=== PATIENT | female | born 1980 | race Caucasian/White ===

== ENCOUNTER 2019-07-30 | Emergency (ER) | payer SELFPAY ==
[2019-07-30 00:33] LABS: Absolute Lymphocytes (CBC) 3.9 K/uL (0.7-4.9); Basophils % 1.1 % (0-1.3); Hematocrit 43.9 % (36.0-45.0); Lymphocytes % 40.8 % (15.3-44.8); RBC Red Blood Cell Count 4.74 M/uL (3.86-4.86)
[2019-07-30] MEDS ORDERED: MORPHINE 4 MG/ML SYR ONE (00:46)
[2019-07-30] MEDS ORDERED: ONDANSETRON 4 MG/2 ML VIAL ONE (00:46)
[2019-07-30 00:51] LABS: ALT/SGPT 35 U/L (12-78); AST/SGOT 18 U/L (15-37); Alkaline Phosphatase 85 U/L (45-117); BUN Blood Urea Nitrogen 15 mg/dL (7-18); Bicarbonate 28 mmol/L (21-32); Bilirubin Direct < 0.1 mg/dL (0-0.2); Bilirubin Total 0.2 mg/dL (0.2-1.0); Glucose Level 109 mg/dL (74-106); Lipase 251 U/L (73-393); Potassium 3.7 mmol/L (3.5-5.1); Protein, Total 7.8 g/dL (6.4-8.2); Sodium Level 141 mmol/L (136-145)
--- NOTE | 2019-07-30 01:54 | ER ---
Nurse's Notes [facility] Name: Gabriella Leigh Age: 38 yrs Sex: Female : 1980 Arrival Date: 07/30/2019 Time: 00:03 Bed 14 Private MD: Diagnosis: Epigastric pain Presentation: 07/29 00:12 Chief complaint: Patient states: i have RUQ pain and vomiting on and off for about a mg2 month now, i fell on the staircase a month ago and i rolled over. i think this is related to the fall. Coronavirus screen: The patient has NOT traveled to a country currently being monitored by the [facility] within the last 14 days. Proceed with normal triage procedures. The patient has NOT had contact with any known and/or suspected case of coronavirus. Proceed with normal triage procedures. Ebola Screen: No symptoms or risks identified at this time. Initial Sepsis Screen: Does the patient meet any 2 criteria? No. Patient's initial sepsis screen is negative. Does the patient have a suspected source of infection? No. Patient's initial sepsis screen is negative. Risk Assessment: Do you want to hurt yourself or someone else? Patient reports no desire to harm self or others. 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 - Social history:: Smoking status: Patient reports the use of cigarette tobacco products, smokes one-half pack cigarettes per day, Patient uses alcohol, occasionally. street drugs, marijuana. Screenin:35 Abuse screen: Denies threats or abuse. Denies injuries from another. Nutritional mg2 screening: No deficits noted. Tuberculosis screening: No symptoms or risk factors identified. Fall Risk IV access (20 points). Assessment: 00:23 General: Appears in no apparent distress. comfortable, Behavior is calm, cooperative. mg2 Pain: Complains of pain in abdomen Pain currently is 7 out of 10 on a pain scale. Quality of pain is described as aching, Pain began gradually, a month ago. Neuro: Level of Consciousness is awake, alert, obeys commands, Oriented to person, place, time, situation. Cardiovascular: Capillary refill < 3 seconds Patient's skin is warm and dry. Respiratory: Airway is patent Respiratory effort is even, unlabored, Respiratory pattern is regular, symmetrical. GI: Abdomen is non-distended, Bowel sounds present X 4 quads. Abd is soft Reports upper abdominal pain, vomiting. : No signs and/or symptoms were reported regarding the genitourinary system. EENT: No signs and/or symptoms were reported regarding the EENT system. Derm: Skin is intact, is healthy with good turgor, Skin is pink, warm \T\ dry. normal. Musculoskeletal: Circulation, motion, and sensation intact. Capillary refill < 3 seconds. Vital Signs: 00:12 BP 121 / 81; Pulse 84; Resp 18; Temp 98.5; Pulse Ox 97% on R/A; Weight 90.72 kg; Height mg2 5 ft. 7 in. (170.18 cm); Pain 7/10; 01:26 BP 121 / 81; Pulse 71; Resp 18; Pulse Ox 95% on R/A; mg2 02:03 BP 120 / 78; Pulse 70; Resp 18; Temp 98; Pulse Ox 100% on R/A; mg2 00:12 Body Mass Index 31.32 (90.72 kg, 170.18 cm) mg2 ED Course: 00:03 Patient arrived in ED. cf2 00:04 Miguel Dolan, ACE is Primary Nurse. mg2 00:05 Arnoldo Torres PA is PHCP. jmm 00:05 Sameer Boudreaux MD is Attending Physician. jmm 00:14 Triage completed. mg2 00:14 Arm band placed on. mg2 00:28 Inserted saline lock: 22 gauge in right antecubital area, using aseptic technique. jb5 Blood collected. 00:30 Basic Metabolic Panel Sent. jb5 00:30 CBC with Diff Sent. jb5 00:30 Creatinine for Radiology Sent. jb5 00:30 Hepatic Function Sent. jb5 00:30 Lipase Sent. jb5 00:36 Patient has correct armband on for positive identification. mg2 00:37 No provider procedures requiring assistance completed. mg2 01:12 CT Abd/Pelvis - IV Contrast Only In Process Unspecified. EDMS 01:53 Edison Brady MD is Referral Physician. jmm 02:02 IV discontinued, intact, bleeding controlled, No redness/swelling at site. Pressure mg2 dressing applied. Administered Medications: 01:14 Drug: morphine 4 mg Route: IVP; Site: left forearm; mg2 01:48 Follow up: Response: No adverse reaction; RASS: Alert and Calm (0) mg2 01:14 Drug: Zofran (Ondansetron) 4 mg Route: IVP; Site: left forearm; mg2 01:47 Follow up: Response: No adverse reaction mg2 Outcome: 01:53 Discharge ordered by MD. jmm 02:03 Discharged to home ambulatory, with family. mg2 02:03 Condition: stable 02:03 Discharge instructions given to patient, family, Instructed on discharge instructions, follow up and referral plans. medication usage, Demonstrated understanding of instructions, follow-up care, medications, Prescriptions given X 4. 02:03 Patient left the ED. mg2 Signatures: Dispatcher [employer] EDMS Arnoldo Torres PA PA jmm Broussard, Jennifer jb5 Miguel Dolan RN RN mg2 Alyssia Espinal cf2
--- NOTE | 2019-07-30 01:54 | EDPHYS ---
Physician Documentation [facility] Name: Gabriella Leigh Age: 38 yrs Sex: Female : 1980 Arrival Date: 07/30/2019 Time: 00:03 Bed 14 Private MD: ROSALEE Physician Sameer Boudreaux HPI: 07/29 00:06 This 38 yrs old Female presents to ER via Ambulatory with complaints of jmm Abdominal Pain. 00:06 The patient presents with abdominal pain in the right upper quadrant. Onset: The jmm symptoms/episode began/occurred gradually, 1 month(s) ago. The symptoms radiate to right back. Associated signs and symptoms: Pertinent positives: nausea and vomiting, Pertinent negatives: diarrhea, fever. The symptoms are described as achy, sharp. Modifying factors: The symptoms are alleviated by nothing, the symptoms are aggravated by. This is a 38 year old female with a history of cancer that presents to the ED with complaints of episodic RUQ pain beginning approx 1 month ago. Patient states pain has intensified over the past week worsening this evening with vomiting. . 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 - Social history:: Smoking status: Patient reports the use of cigarette tobacco products, smokes one-half pack cigarettes per day, Patient uses alcohol, occasionally. street drugs, marijuana. ROS: 00:06 Constitutional: Negative for fever, chills, and weight loss, Cardiovascular: Negative jmm for chest pain, palpitations, and edema, Respiratory: Negative for shortness of breath, cough, wheezing, and pleuritic chest pain. 00:06 Abdomen/GI: Positive for abdominal pain, nausea and vomiting. 00:06 Back: Positive for flank pain, on the right. 00:06 All other systems are negative. Exam: 00:06 Constitutional: This is a well developed, well nourished patient who is awake, alert, jmm and in no acute distress. Head/Face: atraumatic. Eyes: EOMI, no conjunctival erythema appreciated ENT: Moist Mucus Membranes Neck: Trachea midline, Supple Chest/axilla: Normal chest wall appearance and motion. Cardiovascular: Regular rate and rhythm. No edema appreciated Respiratory: Normal respirations, no respiratory distress appreciated 00:06 Back: Normal ROM Skin: General appearance color normal MS/ Extremity: Moves all extremities, no obvious deformities appreciated, no edema noted to the lower extremities Neuro: Awake and alert, normal gait Psych: Behavior is normal, Mood is normal, Patient is cooperative and pleasant 00:06 Abdomen/GI: Inspection: abdomen appears normal, Bowel sounds: normal, Palpation: nontender, moderate abdominal tenderness, in the right upper quadrant. 00:06 Back: CVA tenderness, that is mild, is noted on the right. Vital Signs: 00:12 BP 121 / 81; Pulse 84; Resp 18; Temp 98.5; Pulse Ox 97% on R/A; Weight 90.72 kg; Height mg2 5 ft. 7 in. (170.18 cm); Pain 7/10; 01:26 BP 121 / 81; Pulse 71; Resp 18; Pulse Ox 95% on R/A; mg2 02:03 BP 120 / 78; Pulse 70; Resp 18; Temp 98; Pulse Ox 100% on R/A; mg2 00:12 Body Mass Index 31.32 (90.72 kg, 170.18 cm) mg2 MDM: 00:08 Patient medically screened. keara 01:50 Data reviewed: vital signs, nurses notes. Counseling: I had a detailed discussion with jeff the patient and/or guardian regarding: the historical points, exam findings, and any diagnostic results supporting the discharge/admit diagnosis, lab results, radiology results, the need for outpatient follow up, to return to the emergency department if symptoms worsen or persist or if there are any questions or concerns that arise at home. ED course: Pain relieved in the ED. Patient is advised to follow up with GI for further evaluation. Patient understood and agrees with the plan of care. . 07/29 00:06 Order name: Basic Metabolic Panel; Complete Time: 00:53 [facility] 07/29 00:06 Order name: CBC with Diff; Complete Time: 00:40 [facility] 07/29 00:06 Order name: Creatinine for Radiology; Complete Time: 00:53 [facility] 07/29 00:06 Order name: Hepatic Function; Complete Time: 00:53 [facility] 07/29 00:06 Order name: Lipase; Complete Time: 00:53 [facility] 07/29 00:28 Order name: CT Abd/Pelvis - IV Contrast Only [facility] 07/29 00:06 Order name: IV Saline Lock; Complete Time: 00:30 [facility] 07/29 00:06 Order name: Labs collected and sent; Complete Time: 00:30 [facility] 07/29 00:06 Order name: Urine Dipstick-Ancillary (obtain specimen); Complete Time: 00:30 [facility] 07/29 00:06 Order name: Urine Test (obtain specimen); Complete Time: 00:29 [facility] Administered Medications: 01:14 Drug: morphine 4 mg Route: IVP; Site: left forearm; mg2 01:48 Follow up: Response: No adverse reaction; RASS: Alert and Calm (0) mg2 01:14 Drug: Zofran (Ondansetron) 4 mg Route: IVP; Site: left forearm; mg2 01:47 Follow up: Response: No adverse reaction mg2 Disposition: 12:05 Co-signature as Attending Physician, Sameer Boudreaux MD I agree with the assessment and [facility] plan of care. Disposition: 07/30/19 01:53 Discharged to Home. Impression: Epigastric pain. - Condition is Stable. - Discharge Instructions: Abdominal Pain, Adult. - Prescriptions for Bentyl 20 mg Oral Tablet - take 2 tablet by ORAL route every 6 hours As needed; 40 tablet. Carafate 1 gram Oral Tablet - take 1 tablet by ORAL route 4 times per day take on an empty stomach, beginning on waking and last dose at bedtime; 100 tablet. Pepcid 20 mg Oral Tablet - take 1 tablet by ORAL route every 12 hours for 10 days; 20 tablet. Zofran 4 mg Oral Tablet - take 1 tablet by ORAL route every 12 hours As needed; 20 tablet. - Medication Reconciliation Form, Thank You Letter, Antibiotic Education, Prescription Opioid Use form. - Follow up: Edison Brady MD; When: 2 - 3 days; Reason: Recheck today's complaints, Continuance of care, Re-evaluation by your physician. Signatures: Dispatcher [employer] Sameer Ayala MD MD cha Mickail, Joel, PA PA Miguel Fulton RN RN mg2 Corrections: (The following items were deleted from the chart) 02:03 01:53 07/30/2019 01:53 Discharged to Home. Impression: Epigastric pain. Condition is mg2 Stable. Forms are Medication Reconciliation Form, Thank You Letter, Antibiotic Education, Prescription Opioid Use. Follow up: Edison Brady; When: 2 - 3 days; Reason: Recheck today's complaints, Continuance of care, Re-evaluation by your physician. jeff
[2019-07-30 02:48] VITALS: BP 120/78; TEMP 98; O2SAT 100
--- NOTE | 2019-07-30 11:48 | RAD REPORT ---
EXAM DESCRIPTION: CT ABDOMEN AND PELVIS WITH CONTRAST CLINICAL HISTORY: Right sided abdominal pain, hysterectomy COMPARISON: None Available. TECHNIQUE: CT of the abdomen and pelvis performed following IV administration of iodinated contrast. FINDINGS: Lung Bases: The visualized lung bases are clear. Bones: Posterior misbah and screw fixation with laminectomies at L4/5. Abdomen: Liver: The liver has normal size and decreased density. No intrahepatic biliary dilatation. Gallbladder: Prior cholecystectomy. Spleen, Pancreas, and Adrenal Glands: The spleen, pancreas, and adrenal glands are unremarkable. Kidneys: No hydronephrosis or obstructing calculus. Vasculature: Aortoiliac atherosclerosis. IVC is unremarkable. The portal vein is patent. The proxim al visceral and renal arteries are patent. Stomach: The stomach and duodenum have normal course. Other: No free intraperitoneal air. No free fluid or lymphadenopathy. Pelvis: Bladder: Urinary bladder is unremarkable. Bowel: No dilated loops of large or small bowel. Diffuse scattered diverticula of the colon without pericolic inflammatory change. Appendix: Not identified. Pelvis: Prior hysterectomy. IMPRESSION: 1. No acute inflammatory or obstructive process identified. 2. Hepatic steatosis. 3. Diverticulosis without evidence of acute diverticulitis. This exam was performed according to our departmental dose-optimization program, which includes autom ated exposure control, adjustment of the mA and/or kV according to patient size and/or use of iterati ve reconstruction technique. Electronically signed by: Suman Jones 07/30/2019 1:26 AM CDT Due to temporary technical issues with the PACS/Fluency reporting system, reports are being signed by the in house radiologist as a courtesy to ensure prompt reporting. The interpreting radiologist is f ully responsible for the content of the report.
== END 2019-07-30 02:03 | disposition home or self-care (01) ==
LOC: ER
DX: R10.13 Epigastric pain (principal); R11.2 Nausea with vomiting, unspecified; Z88.2 Allergy status to sulfonamides; Z91.040 Latex allergy status; Z91.048 Other nonmedicinal substance allergy status
CPT/HCPCS: 36415; 74177; 80048; 80076; 83690; 85025; 96374; 96375; 99284; J2405; Q9967

== ENCOUNTER 2020-02-18 13:53 | Emergency (ER) | payer OTHER, SELFPAY ==
--- OUTSIDE RECORDS SUMMARY | 2020-02-18 13:55 | XMS REPORT | Continuity of Care Document ---
:1980 Author Organization [facility] t Address [address] [place] [address] Care Team Providers Name Role Phone Unavailable Unavailable Unavailable Problems This patient has no known problems. Allergies, Adverse Reactions, Alerts This patient has no known allergies or adverse reactions. Social History Smoking Status Start Date Stop Date Source Heavy Tobacco Smoker [facility] Medications Ordered Filled Start Stop Current Ordering Indication Dosage Frequency Signature Comments Components Source Medication Medication Date Date Medication? Clinician (SIG) Name Name naproxen naproxen No naproxen [facility] Vital Signs Vital Name Observation Time Observation Value Comments Source BP Diastolic 2019-05-27 00:00:00 82 mm[Hg] [facility] Height 2019-05-27 00:00:00 67 [in_i] [facility] BMI (Body Mass 2019-05-27 00:00:00 33.9 kg/m2 [facility] BP Systolic 2019-05-27 00:00:00 129 mm[Hg] [facility] Body Weight 2019-05-27 00:00:00 216.3 [lb_av] [facility] Procedures This patient has no known procedures. Encounters Start End Encounter Admission Attending Care Care Encounter Source Date/Time Date/Time Type Type Clinicians Facility Department ID 2019-05-27 2019-05-27 Hugo RAMOS [place] - [id number] [facility] 00:00:00 00:00:00 [facility] breanna Salmon MD: [address] [place] [address] Group [facility] - [address], [place] [address] , Ph. Results This patient has no known results.
[2020-02-18] MEDS ORDERED: MORPHINE 4 MG/ML SYR ONE (14:26)
[2020-02-18] MEDS ORDERED: NA CHLORIDE 0.9% 1,000 ML ONE (14:26)
[2020-02-18] MEDS ORDERED: ONDANSETRON 4 MG/2 ML VIAL ONE (14:26)
[2020-02-18 14:33] LABS: Absolute Lymphocytes (CBC) 2.5 K/uL (0.7-4.9); Basophils % 0.8 % (0-1.3); Hematocrit 44.2 % (36.0-45.0); RBC Red Blood Cell Count 4.83 M/uL (3.86-4.86)
[2020-02-18 14:50] LABS: ALT/SGPT 31 U/L (12-78); AST/SGOT 9 U/L (15-37); Albumin 3.9 g/dL (3.4-5.0); Alkaline Phosphatase 94 U/L (45-117); BUN Blood Urea Nitrogen 12 mg/dL (7-18); Bicarbonate 29 mmol/L (21-32); Bilirubin Direct < 0.1 mg/dL (0-0.2); Bilirubin Total 0.2 mg/dL (0.2-1.0); Glucose Level 108 mg/dL (74-106); Lipase 132 U/L (73-393); Potassium 4.3 mmol/L (3.5-5.1); Protein, Total 7.7 g/dL (6.4-8.2); Sodium Level 140 mmol/L (136-145)
--- NOTE | 2020-02-18 15:19 | RAD REPORT ---
EXAM DESCRIPTION: CT - Abdomen Pelvis W Contrast - 02/18/2020 2:29 pm CLINICAL HISTORY: ABD PAIN COMPARISON: Abdomen Pelvis W Contrast dated 07/30/2019 TECHNIQUE: Biphasic, helical CT imaging of the abdomen and pelvis was performed following 100 ml non -ionic IV contrast. No oral contrast given. All CT scans are performed using dose optimization technique as appropriate and may include automated exposure control or mA/KV adjustment according to patient size. FINDINGS: No suspicious findings in the lung bases. The liver, spleen, and pancreas show no suspicious findings. Liver shows fatty infiltration. No portia l vein abnormality. Gallbladder is absent. No biliary tree dilatation. Symmetric renal function is seen with no hydronephrosis or suspicious renal mass. No pyelonephritis o r acute parenchymal process. No bladder abnormalities. No adrenal abnormalities. Uterus is absent. Ov akbar may be absent or atrophic. No adnexal mass. No dilated bowel loops or bowel wall thickening. No free air, free fluid or inflammatory stranding. No hernia, mass or bulky lymphadenopathy. No suspicious bony findings. Postsurgical changes are present at L4-5. IMPRESSION: Contrast enhanced CT abdomen and pelvis showing no acute or emergent finding. The above detailed findings are not significantly different from July 2019 study.
--- NOTE | 2020-02-18 15:31 | ER ---
Nurse's Notes [facility] Name: Gabriella Leigh Age: 39 yrs Sex: Female : 1980 Arrival Date: 02/18/2020 Time: 13:59 Bed 4 Private MD: Diagnosis: Upper abdominal pain, unspecified Presentation: 02/17 14:03 Chief complaint: Patient states: RUQ abd pain with N/V started today. No fever. ll1 Coronavirus screen: Client denies travel out of the [place] in the last 14 days. At this time, the client does not indicate any symptoms associated with coronavirus-19. Ebola Screen: Patient denies travel to an Ebola-affected area in the 21 days before illness onset. Initial Sepsis Screen: Does the patient meet any 2 criteria? No. Patient's initial sepsis screen is negative. Does the patient have a suspected source of infection? Yes: Acute abdominal pain. Risk Assessment: Do you want to hurt yourself or someone else? Patient reports no desire to harm self or others. Onset of symptoms was February 18, 2020. 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 - Social history:: Smoking status: Patient reports the use of cigarette tobacco products, smokes one-half pack cigarettes per day. Screenin:44 Abuse screen: Denies threats or abuse. Nutritional screening: No deficits noted. tw2 Tuberculosis screening: No symptoms or risk factors identified. Fall Risk None identified. Assessment: 14:05 General: Appears in no apparent distress. uncomfortable, obese, well groomed, Behavior tw2 is calm, cooperative, appropriate for age. Pain: Complains of pain in abdomen. Neuro: Level of Consciousness is awake, alert, obeys commands, Oriented to person, place, time, situation. Cardiovascular: Heart tones S1 S2 Patient's skin is warm and dry. Respiratory: Airway is patent Respiratory effort is even, unlabored, Respiratory pattern is regular, symmetrical, Breath sounds are clear bilaterally. GI: Bowel sounds present X 4 quads. Abd is soft X 4 quads Abdomen is tender to palpation X 4 quads. Reports lower abdominal pain, upper abdominal pain, nausea. : No signs and/or symptoms were reported regarding the genitourinary system. EENT: No signs and/or symptoms were reported regarding the EENT system. Derm: No signs and/or symptoms reported regarding the dermatologic system. Musculoskeletal: Range of motion: intact in all extremities. 14:58 Reassessment: Patient appears in no apparent distress at this time. No changes from tw2 previously documented assessment. Patient and/or family updated on plan of care and expected duration. Pain level reassessed. Patient is alert, oriented x 3, equal unlabored respirations, skin warm/dry/pink. 15:43 Reassessment: Patient appears in no apparent distress at this time. No changes from tw2 previously documented assessment. Patient and/or family updated on plan of care and expected duration. Pain level reassessed. Patient is alert, oriented x 3, equal unlabored respirations, skin warm/dry/pink. 15:52 Reassessment: Patient appears in no apparent distress at this time. No changes from tw2 previously documented assessment. Patient and/or family updated on plan of care and expected duration. Pain level reassessed. Patient is alert, oriented x 3, equal unlabored respirations, skin warm/dry/pink. Vital Signs: 14:03 BP 117 / 79; Pulse 89; Resp 17; Temp 98.1; Pulse Ox 100% ; Weight 86.18 kg; Height 5 ll1 ft. 7 in. (170.18 cm); Pain 8/10; 14:58 BP 128 / 97; Pulse 75; Resp 17; Pulse Ox 97% on R/A; tw2 15:43 BP 122 / 85; Pulse 69; Resp 17; Pulse Ox 99% on R/A; tw2 14:03 Body Mass Index 29.76 (86.18 kg, 170.18 cm) 1 ED Course: 13:59 Patient arrived in ED. mr 14:04 Triage completed. 1 14:05 Arm band placed on Patient placed in an exam room, on a stretcher. 1 14:05 Bed in low position. Call light in reach. Adult w/ patient. Pulse ox on. NIBP on. tw2 14:07 Mima Ma [facility]-C [facility]. kb 14:07 Sameer Boudreaux MD is Attending Physician. kb 14:11 Natalie Swift, RN is Primary Nurse. tw2 14:21 Inserted saline lock: 20 gauge in left antecubital area, using aseptic technique. Blood mt collected. 14:29 CT Abd/Pelvis - IV Contrast Only In Process Unspecified. EDMS 14:36 CT completed. Patient tolerated procedure well. Patient moved to CT via stretcher. sw Patient moved back from CT. 14:36 Note: CREATINE WAS DRAWN IN CT, 0.9 RESULTED. 15:52 No provider procedures requiring assistance completed. IV discontinued, intact, tw2 bleeding controlled, No redness/swelling at site. Pressure dressing applied. Administered Medications: 14:36 Drug: NS 0.9% 1000 ml Route: IV; Rate: 1000 ml; Site: left antecubital; tw2 15:30 Follow up: Response: No adverse reaction; IV Status: Completed infusion; IV Intake: tw2 1000ml 14:36 Drug: Zofran (Ondansetron) 4 mg Route: IVP; Site: left antecubital; tw2 15:30 Follow up: Response: No adverse reaction; Nausea is decreased tw2 14:38 Drug: morphine 4 mg Route: IVP; Site: left antecubital; tw2 15:30 Follow up: Response: No adverse reaction; Pain is decreased; RASS: Alert and Calm (0) tw2 Intake: 15:30 IV: 1000ml; Total: 1000ml. tw2 Outcome: 15:30 Discharge ordered by . kb 15:52 Discharged to home ambulatory, with significant other. tw2 15:52 Condition: stable 15:52 Discharge instructions given to patient, significant other, Instructed on discharge instructions, follow up and referral plans. medication usage, Demonstrated understanding of instructions, follow-up care, medications, Prescriptions given X 2. 15:53 Patient left the ED. tw2 Signatures: Dispatcher [employer] EDMS Mima Ma FNP-C FNP-Ckmarleni Chiquis Rios, Savita Natalie Swift, RN RN tw2 Waleska Nascimento mt, Lynsay RN RN ll1
--- NOTE | 2020-02-18 15:32 | EDPHYS ---
Physician Documentation [facility] Name: Gabriella Leigh Age: 39 yrs Sex: Female : 1980 Arrival Date: 02/18/2020 Time: 13:59 Bed 4 Private MD: ROSALEE Physician Sameer Boudreaux HPI: 02/17 15:04 This 39 yrs old Female presents to ER via Ambulatory with complaints of kb Abdominal Pain. 15:04 The patient presents with abdominal pain. Onset: The symptoms/episode began/occurred kb today. The symptoms do not radiate. Associated signs and symptoms: none. The symptoms are described as constant. Modifying factors: The symptoms are alleviated by nothing, the symptoms are aggravated by nothing. Severity of pain: At its worst the pain was moderate in the emergency department the pain is unchanged. The patient has experienced a previous episode. The patient has not recently seen a physician. Pt reports RUQ pain that started today. Denies any associated symptoms. States she had this pain before and was told she needed to see a GI doctor, but she hasn't had time to follow up with one. . JAW SKINNER: 15:44 LMP N/A - tw2 Historical: - Allergies: 14:04 Sulfa (Sulfonamide Antibiotics); ll1 14:04 Latex, Natural Rubber; ll1 14:04 dopamine blockers; ll1 - PSHx: 14:04 Cholecystectomy; Appendectomy; Hysterectomy; stomach surgery; ll1 - Immunization history:: Flu vaccine is not up to date. - Social history:: Smoking status: Patient reports the use of cigarette tobacco products, smokes one-half pack cigarettes per day. ROS: 15:04 Constitutional: Negative for fever, chills, and weight loss, Cardiovascular: Negative kb for chest pain, palpitations, and edema, Respiratory: Negative for shortness of breath, cough, wheezing, and pleuritic chest pain, Back: Negative for injury and pain, MS/Extremity: Negative for injury and deformity, Skin: Negative for injury, rash, and discoloration, Neuro: Negative for headache, weakness, numbness, tingling, and seizure. 15:04 Abdomen/GI: Positive for abdominal pain, Negative for nausea, vomiting, and diarrhea, constipation, abdominal cramps. Exam: 15:04 Constitutional: This is a well developed, well nourished patient who is awake, alert, kb and in no acute distress. Head/Face: Normocephalic, atraumatic. Chest/axilla: Normal chest wall appearance and motion. Nontender with no deformity. No lesions are appreciated. Cardiovascular: Regular rate and rhythm with a normal S1 and S2. No gallops, murmurs, or rubs. Normal PMI, no JVD. No pulse deficits. Respiratory: Lungs have equal breath sounds bilaterally, clear to auscultation and percussion. No rales, rhonchi or wheezes noted. No increased work of breathing, no retractions or nasal flaring. Skin: Warm, dry with normal turgor. Normal color with no rashes, no lesions, and no evidence of cellulitis. MS/ Extremity: Pulses equal, no cyanosis. Neurovascular intact. Full, normal range of motion. Neuro: Awake and alert, GCS 15, oriented to person, place, time, and situation. Cranial nerves II-XII grossly intact. Motor strength 5/5 in all extremities. Sensory grossly intact. Cerebellar exam normal. Normal gait. 15:04 Abdomen/GI: Inspection: abdomen appears normal, Bowel sounds: normal, Palpation: soft, in all quadrants, moderate abdominal tenderness, in the right upper quadrant. Vital Signs: 14:03 BP 117 / 79; Pulse 89; Resp 17; Temp 98.1; Pulse Ox 100% ; Weight 86.18 kg; Height 5 ll1 ft. 7 in. (170.18 cm); Pain 8/10; 14:58 BP 128 / 97; Pulse 75; Resp 17; Pulse Ox 97% on R/A; tw2 15:43 BP 122 / 85; Pulse 69; Resp 17; Pulse Ox 99% on R/A; tw2 14:03 Body Mass Index 29.76 (86.18 kg, 170.18 cm) ll1 MDM: 14:07 Patient medically screened. [facility] 15:04 Data reviewed: vital signs, nurses notes. Data interpreted: Pulse oximetry: on room air kb is 97 %. Interpretation: normal. 15:26 Counseling: I had a detailed discussion with the patient and/or guardian regarding: the kb historical points, exam findings, and any diagnostic results supporting the discharge/admit diagnosis, lab results, radiology results, the need for outpatient follow up, a egg setter, to return to the emergency department if symptoms worsen or persist or if there are any questions or concerns that arise at home. 02/17 14:08 Order name: Basic Metabolic Panel; Complete Time: 14:59 kb 02/17 14:08 Order name: CBC with Diff; Complete Time: 14:35 kb 02/17 14:08 Order name: Hepatic Function; Complete Time: 14:59 kb 02/17 14:08 Order name: Lipase; Complete Time: 14:59 kb 02/17 14:11 Order name: CT Abd/Pelvis - IV Contrast Only; Complete Time: 15:25 kb 02/17 14:08 Order name: IV Saline Lock; Complete Time: 14:22 kb 02/17 14:08 Order name: Labs collected and sent; Complete Time: 14:23 kb Administered Medications: 14:36 Drug: NS 0.9% 1000 ml Route: IV; Rate: 1000 ml; Site: left antecubital; tw2 15:30 Follow up: Response: No adverse reaction; IV Status: Completed infusion; IV Intake: tw2 1000ml 14:36 Drug: Zofran (Ondansetron) 4 mg Route: IVP; Site: left antecubital; tw2 15:30 Follow up: Response: No adverse reaction; Nausea is decreased tw2 14:38 Drug: morphine 4 mg Route: IVP; Site: left antecubital; tw2 15:30 Follow up: Response: No adverse reaction; Pain is decreased; RASS: Alert and Calm (0) tw2 Disposition: 02/18/20 15:30 Discharged to Home. Impression: Upper abdominal pain, unspecified. - Condition is Stable. - Discharge Instructions: Abdominal Pain, Adult, [id number]. - Prescriptions for Zofran 4 mg Oral Tablet - take 1 tablet by ORAL route every 6 hours As needed; 20 tablet. Diclofenac Sodium 75 mg Oral Tablet, Delayed Release (E.C.) - take 1 tablet by ORAL route 2 times per day As needed; 30 tablet. - Medication Reconciliation Form, Thank You Letter, Antibiotic Education, Prescription Opioid Use, Work release form, Family Work Release form. - Follow up: Emergency Department; When: As needed; Reason: Worsening of condition. Follow up: Private Physician; When: 2 - 3 days; Reason: Recheck today's complaints, Continuance of care, Re-evaluation by your physician. Addendum: 02/19/2020 17:54 Co-signature as Attending Physician, Sameer Boudreaux MD I agree with the assessment and c xiong plan of care. Signatures: Dispatcher [employer] Mima Lowry, [employer]PER[employer]AL [employer]CRA[employer]CH[employer]IC-C EXPERIMENTAL [employer]CRAFT MECHANIC-CkSameer Whyte MD MD cha Wise, Tara, RN RN tw2 Saranya Carney RN RN ll1 Corrections: (The following items were deleted from the chart) 02/17 15:53 15:30 02/18/2020 15:30 Discharged to Home. Impression: Upper abdominal pain, tw2 unspecified. Condition is Stable. Forms are Medication Reconciliation Form, Thank You Letter, Antibiotic Education, Prescription Opioid Use. Follow up: Emergency Department; When: As needed; Reason: Worsening of condition. Follow up: Private Physician; When: 2 - 3 days; Reason: Recheck today's complaints, Continuance of care, Re-evaluation by your physician. kb
[2020-02-18 16:00] VITALS: TEMP 98.1
[2020-02-18 16:03] VITALS: BP 122/85; O2SAT 99
== END 2020-02-18 15:53 | disposition home or self-care (01) ==
LOC: ER 13:53
DX: R10.11 Right upper quadrant pain (principal); F17.210 Nicotine dependence, cigarettes, uncomplicated; Z88.2 Allergy status to sulfonamides; Z88.8 Allergy status to other drugs, medicaments and biological substances; Z91.040 Latex allergy status
CPT/HCPCS: 96361; 85025; 80048; 36415; 82565; 80076; 83690; 74177; 96375; 96374; 99284; Q9967; J7030; J2405